=== PATIENT | female | born 1945 | race Hispanic/Latino ===

== ENCOUNTER 2023-04-19 18:58 | Emergency (ER) | payer SELFPAY | END 2023-04-19 22:40 | disposition home or self-care (01) | LOC: ERS 18:58 | DX: S20.219A Contusion of unspecified front wall of thorax, initial encounter (principal); I10 Essential (primary) hypertension; E11.9 Type 2 diabetes mellitus without complications; V43.62XA Car passenger injured in collision with other type car in traffic accident, initial encounter; Z79.84 Long term (current) use of oral hypoglycemic drugs; Z79.899 Other long term (current) drug therapy | CPT/HCPCS: 71046 ==